=== PATIENT | male | born 2000 | race Caucasian/White ===

== ENCOUNTER 2025-05-02 09:34 | Outpatient (CLI) | payer BC | END 2025-05-02 09:35 | disposition home or self-care (01) | LOC: CSHSLEEP 09:34 | PROVIDERS: ATTEND Family Medicine | DX: G47.33 Obstructive sleep apnea (adult) (pediatric) (principal); F51.9 Sleep disorder not due to a substance or known physiological condition, unspecified; E66.9 Obesity, unspecified; Z68.32 Body mass index [BMI] 32.0-32.9, adult; R06.83 Snoring; I10 Essential (primary) hypertension | CPT/HCPCS: 95800 ==